=== PATIENT | female | born 1975 | race Caucasian/White ===

== ENCOUNTER 2023-02-07 13:24 | Emergency (ER) | payer OTHER ==
[~2023-02-07] VITALS: Ht 170.2 cm; Wt 109.6 kg
--- OUTSIDE RECORDS SUMMARY | 2023-02-07 13:26 | XMS ---
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 Connie VISIT COUNT (12 MO.) Merlin Dill TOTAL 1 NOTE: Visits indicate total known visits. ED/UCC VISIT TRACKING (12 MO.) 02/07/2023 13:25 [facility] [place] TYPE: Emergency COMPLAINT: - HEAVY VAGINAL BLEEDING INPATIENT VISIT TRACKING (12 MO.) No inpatient visits to display in this time frame [email or web address]
[2023-02-07] MEDS ORDERED: LEVETIRACETAM1000 MG PO (15:31)
[2023-02-07] MEDS ORDERED: IRON325 M1 PO (15:31)
[2023-02-07] MEDS ORDERED: GABAPENTIN300 MG PO (15:32)
[2023-02-07] MEDS ORDERED: TRANEXAMIC ACI650 MG PO (16:35)
== END 2023-02-07 16:59 | disposition home or self-care (01) ==
LOC: ED 13:24
DX: N93.8 Other specified abnormal uterine and vaginal bleeding (principal); D64.9 Anemia, unspecified; D25.9 Leiomyoma of uterus, unspecified; Z88.8 Allergy status to other drugs, medicaments and biological substances; Z88.0 Allergy status to penicillin; Z79.899 Other long term (current) drug therapy
CPT/HCPCS: 36415; 76830; 76856; 80048; 84703; 85025; 86900; 86901; 99284-25

== ENCOUNTER 2023-03-13 05:53 | Day surgery (SDC) | payer OTHER ==
[2023-03-06 11:01] VITALS: BP 124/83
[~2023-03-13] VITALS: Ht 170.2 cm; Wt 109.1 kg
[~2023-03-13 05:53] MED LIST: ATIVAN1 MG PO; BACTRIM DS TAB1 EACH PO; CALCIUM-FOLIC1 EACH PO; GABAPENTIN300 MG PO; ICAPS AREDS2 C1 EACH PO; IRON325 M1 PO; LEVETIRACETAM1000 MG PO; ONDANSETRON ODT8 MG PO; OXYCODONE HCL5 MG PO; TRANEXAMIC ACI650 MG PO; TYLENOL325 M1 PO; [UNRECOGNIZED DRUG - OTHER] PO
[2023-03-13 06:10] VITALS: BP 135/74
[2023-03-13 10:01] VITALS: BP 107/64
--- NOTE | 2023-03-14 08:55 | OR ---
[facility] [address] [place], [place] [address] Signed DATE OF OPERATION: 03/13/2023 SURGEON: Anna Goncalves DO PREOPERATIVE DIAGNOSES: 1. Abnormal uterine bleeding. 2. Submucosal fibroid. 3. Cervical cancer screening needed. POSTOPERATIVE DIAGNOSES: 1. Abnormal uterine bleeding. 2. Prolapsed fibroid or polyp through the cervix. 3. Submucosal fibroid (large). 4. Cervical cancer screening. 5. Brain cancer. PROCEDURES PERFORMED: 1. Cervical polypectomy. 2. Hysteroscopic myomectomy with dilation and curettage. 3. Pap smear under anesthesia. ANESTHESIA: MAC. ESTIMATED BLOOD LOSS: 25 mL. FLUID DEFICIT: 750 mL. SPECIMENS: 1. Prolapsed cervical fibroid/polyp. 2. Submucosal fibroid with endometrial curettings. 3. Pap smear. FINDINGS: Normal external genitalia with normal clitoris, urethral meatus, bilateral [place]'s and Bartholin's glands. Normal vagina. The cervix is dilated with a prolapsing cervical mass, likely polyp or fibroid. On hysteroscopy, large submucosal fibroid at 12 o'clock filling the entire uterine cavity. Endometrium otherwise normal but somewhat thickened. Electronically Signed By: ANNA GONCALVES DO (JD) 03/14/23 0855 PATIENT NAME: JUAN FRANCISCO BUSTILLO OPERATIVE REPORT DATE OF : 79 REPORT #: [id number] PHYSICIAN: ANNA GONCALVES DO (JD) PCP: KEYANNA JOHN PA-C REPORT IS CONFIDENTIAL AND NOT TO BE RELEASED WITHOUT AUTHORIZATION [facility] [address] [place], [place] [address] Signed Normal tubal ostia bilaterally. The fibroid was apparently removed in total. COMPLICATIONS: None. INDICATION: Ms. Bustillo is a very pleasant 47-year-old female with history of abnormal uterine bleeding that was stabilized in the emergency department with tranexamic acid. Ultrasound demonstrated large submucosal fibroid filling the endometrial cavity. Medical history is complicated by astrocytoma under the care of Dr. Villatoro. She was consented for Pap smear under anesthesia with hysteroscopy, D and C, and hysteroscopic myomectomy. Risks, benefits, and alternatives were discussed in detail with the patient. The patient understands and wished to proceed with the procedure. TECHNIQUE: The patient was taken to the operating room where a time-out was performed to confirm correct patient and correct procedure. MAC anesthesia was adequately established and the patient was prepped and draped in dorsal lithotomy position with her feet in Yellofin stirrups. ICPs were on and running and no preoperative antibiotics or heparin was indicated. Weighted speculum was placed in the vagina and Arriola retractor was used to retract the anterior vaginal wall. Dilated cervix with prolapsing cervical polyp or fibroid was noted. This was grasped with ring forceps and twisted until it came free. The cervix was then gently dilated using Hegar dilators. An operative hysteroscope was placed in the cervical os and advanced under direct visualization of the cavity. The stalk of the prolapsing polyp was noted to be somewhat low in the endocervical canal. The hysteroscope was advanced into the uterine cavity and a large central submucosal fibroid was noted at approximately 12 o'clock filling the entire uterine cavity. Bilateral tubal ostia were identified. A MyoSure Reach device was selected and hysteroscopic myomectomy was performed removing the entire fibroid and circumferential sampling of the endometrium was then performed. The intrauterine pressure was increased somewhat during the procedure in order to aid visualization. Fluid deficit was noted to be at 750. The hysteroscope was withdrawn. The remaining stalk of the endocervical polyp was removed with polyp forceps and Pap smear was performed and sent to pathology for further evaluation. Sponge, needle, and instrument count was correct x2 at the end of the procedure. The patient was then taken to PACU in good and stable condition. Anna Goncalves DO Electronically Signed By: ANNA GONCALVES DO (JD) 03/14/23 0855 PATIENT NAME: JUAN FRANCISCO BUSTILLO OPERATIVE REPORT DATE OF : [birth year] REPORT #: [id number] PHYSICIAN: ANNA GONCALVES DO (JD) PCP: KEYANNA JOHN PA-C REPORT IS CONFIDENTIAL AND NOT TO BE RELEASED WITHOUT AUTHORIZATION [facility] [address] [place] [id number] Signed ANA ROSA/ADI /[id number] Copies: ~ Electronically Signed By: ANNA GONCALVES (JD) DO 03/14/23 0855 PATIENT NAME: JUAN FRANCISCO BUSTILLO WHITNEY OPERATIVE REPORT DATE OF : [birth year] REPORT #: [id number] PHYSICIAN: ANNA GONCALVES) PCP: KEYANNA JOHN PA-C REPORT IS CONFIDENTIAL AND NOT TO BE RELEASED WITHOUT AUTHORIZATION
--- NOTE | 2023-03-16 11:55 | PATH ---
[facility] [address] [place], [place] [address] Signed SPECIMEN(S): A PROLAPSING UTERINE POLYP SPECIMEN(S): B UTERINE FIBROID AND EMC SPECIMEN SOURCE: A. PROLAPSING UTERINE POLYP B. UTERINE FIBROID AND EMC CLINICAL HISTORY: Abnormal uterine bleeding, anemia, fibroids. FINAL PATHOLOGIC DIAGNOSIS: A. Prolapsing uterine polyp: - Endocervical polyp with squamous metaplasia and mild squamous dysplasia (TAURUS 1), negative for high grade dysplasia or malignancy. B. Uterine fibroid and endometrial curettage: - Inactive and weakly proliferative endometrium with prominent stromal decidual change, negative for hyperplasia or atypia. - Abundant fragments of benign myometrium. JVR:[facility]:C2NR MICROSCOPIC EXAMINATION: Histologic sections of all submitted blocks are examined by light microscopy. These findings, together with the gross examination, support the pathologic diagnosis. A P16 immunostain is performed with appropriate controls on block (A1) and is negative for full-thickness staining in the area of concern, supporting the diagnosis. JVR:[facility] GROSS DESCRIPTION: A. The specimen, labeled and designated "Bustillo, prolapsing uterine polyp," is received in formalin and consists of white-aleman, firm, smooth tissue fragment that measures 2.4 x 1.4 x 0.9 cm. Specimen is inked. Sectioning through the specimen reveals pink-aleman homogenous tissue. Entirely submitted in (A1-A2). B. The specimen, labeled and designated "Bustillo, uterine fibroid and endometrial curettings," is received in formalin and consists of irregular shaped, pink-aleman, membranous and hemorrhagic tissue fragments that aggregate measure 2.8 x 2.5 x 0.5 cm. Entirely submitted in (B1-B3). JS (under the direct supervision of a pathologist) PATIENT NAME: JUAN FRANCISCO BUSTILLO PATHOLOGY DATE OF : [birth year] REPORT #: [id number] PHYSICIAN: VISHAL ORTEGA PCP: KEYANNA JOHN PA-C REPORT IS CONFIDENTIAL AND NOT TO BE RELEASED WITHOUT AUTHORIZATION [facility] [address] [place], [place] [address] Signed The Gross Description was prepared using a voice recognition system. The report was reviewed for accuracy; however, sound-alike word errors, addition and/or deletions may occur. If there is any question about this report, please contact Client Services. ADDITIONAL NOTES: Immunohistochemical and/or in situ hybridization studies were performed on this case with the appropriate positive controls that react as expected. This test was developed and its performance characteristics determined by light. It has not been cleared or approved by the U.S. Food and Drug Administration. The FDA has determined that such clearance or approval is not necessary. This test is used for clinical purposes. It should not be regarded as investigational or for research. light is certified under the Clinical Laboratory Improvement Amendments of 1988 (CLIA) as qualified to perform high complexity clinical laboratory testing. This assay has not been validated for specimens that have been decalcified. PERFORMING LABORATORY: The technical component was performed by [facility], [address] [place] [id number] (CLIA# [id number]). Professional interpretation was performed by [facility], [address] [place] [id number] (CLIA#: [id number]). Diagnostician: Timothy Medina MD Pathologist Electronically Signed 03/16/2023 Copies: ~ PATIENT NAME: JUAN FRANCISCO BUSTILLO PATHOLOGY DATE OF : [birth year] REPORT #: [id number] PHYSICIAN: VISHAL PATHOLOGY PCP: KEYANNA JOHN PA-C REPORT IS CONFIDENTIAL AND NOT TO BE RELEASED WITHOUT AUTHORIZATION
--- NOTE | 2023-03-16 12:50 | PATH ---
[facility] [address] [place], [place] [address] Signed ORDERING PHYSICIAN: Jalen Goncalves DO PATIENT NAME: JUAN FRANCISCO BUSTILLO GENDER: F : 1975 Prior History: No cases found. SPECIMEN(S): Cervical/ Endocervical CLINICAL HISTORY: Routine Pap Smear CYTOLOGIC INTERPRETATION: Negative for intraepithelial lesion or malignancy. TECHNICAL NOTES: To improve disease detection, this slide is screened using automated intelligence technology. This specimen was received in a vial of liquid-based fixative and was processed using thin layer Pap technology. SPECIMEN ADEQUACY: Satisfactory for evaluation. Endocervical and/or metaplastic cells present. An interfering substance is present. Blood or some other interfering foreign material is present that is obscuring the cells. This specimen has been reprocessed using alternate specimen preparation methods in an attempt to increase cellularity. ADDITIONAL NOTES: The Pap smear is a screening test designed to aid in the detection of premalignant and malignant conditions of the uterine cervix. It is not a diagnostic procedure and should not be used as the sole means of detecting cervical cancer. Both false-positive and false-negative reports do occur. PERFORMING LABORATORY: Technical preparation was performed by [facility], [address] [place], [place] [address] [address] (CLIA#: [id number]). 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
== END 2023-03-13 09:50 | disposition home or self-care (01) ==
LOC: DS 05:53
PROVIDERS: ATTEND Obstetrics & Gynecology
PROC: 0UDB8ZX Extraction of Endometrium, Via Natural or Artificial Opening Endoscopic, Diagnostic (ICD-10-PCS; principal; 2023-03-13 08:00)
DX: D25.0 Submucous leiomyoma of uterus (principal); D50.0 Iron deficiency anemia secondary to blood loss (chronic); Z88.0 Allergy status to penicillin; F17.210 Nicotine dependence, cigarettes, uncomplicated; C71.9 Malignant neoplasm of brain, unspecified; N84.1 Polyp of cervix uteri
CPT/HCPCS: 00952; 36415; 86850; 86900; 86901; 88305; 88342; J0131; J1885; J2001; J2704; J3490; J7121

== ENCOUNTER 2023-03-31 17:44 | Emergency (ER) | payer OTHER ==
[~2023-03-31] VITALS: Ht 170.2 cm; Wt 108.9 kg
--- OUTSIDE RECORDS SUMMARY | 2023-03-31 17:47 | XMS ---
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 Connie VISIT COUNT (12 MO.) Frandy Dill TOTAL 2 NOTE: Visits indicate total known visits. 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
[2023-03-31] MEDS ORDERED: CLEOCIN HCL300 MG PO (19:13)
[2023-03-31 19:25] VITALS: BP 141/72
== END 2023-03-31 19:26 | disposition home or self-care (01) ==
LOC: ED 17:44
DX: K04.7 Periapical abscess without sinus (principal); Z88.0 Allergy status to penicillin; Z88.8 Allergy status to other drugs, medicaments and biological substances
CPT/HCPCS: 64400; 99282-25; A9270

== ENCOUNTER 2024-10-08 05:25 | Day surgery (SDC) | payer MEDICARE, OTHER ==
[2024-07-24 14:17] VITALS: BP 125/79
[2024-09-17 11:25] VITALS: BP 125/79
[~2024-10-08] VITALS: Ht 170.2 cm; Wt 113.6 kg
[~2024-10-08 05:25] MED LIST changes: +ALEVE220 MG PO; +CALCIUM500 MG PO; +CEFAZOLIN SODIUM 2 GM/20 ML SYR IV SCH; +CLEOCIN HCL300 MG PO; +DICLOFENAC SODI75 MG PO; +GABAPENTIN 600 MG TAB PO SCH; +IBLOOD GLUCOSE TEST STRIP 1 EA TEST VI PRN; +INTRA-ARTICULAR ANALGESIC INJECTION XX SCH; +LACTATED RINGER'S 1,000 ML IV SCH; +LIDOCAINE HCL 1% 5 ML SDV INJ ONE; +MIRENA1 EAC3; +OXYCODONE HCL 5 MG TAB PO SCH; +PANTOPRAZOLE SODIUM 40 MG TABEC PO SCH; +PREDNISONE20 MG PO; +ROPIVACAINE IN 0.9% SOD CHL/PF 545 ML ELS.PMP.HR IRRIGATION SCH; +Ropivacaine HCl 20 MG/10 ML AMP ONE; +TRANEXAMIC ACID 2,000 MG in SODIUM CHLORIDE 0.9% 100 ML IV SCH; +VANCOMYCIN HCL 1,000 MG in DEXTROSE 5% 250 ML IV SCH; +VENTOLIN HFA18 GM INH; +VITAMIN B-12100 MCG PO; +VITAMIN D325 MCG PO; +levETIRAcetam 500 MG TAB PO SCH; +ondansetron HCL 4 MG TAB PO SCH
[2024-10-08 06:00] VITALS: BP 130/74
[2024-10-08] MEDS ORDERED: propofoL 200 MG/20 ML VIAL ONE ×3 (06:26→09:31)
[2024-10-08] MEDS ORDERED: DEXAMETHASONE SOD PHOS 4 MG/ML VIAL ONE (06:26)
[2024-10-08] MEDS ORDERED: SODIUM CHLORIDE 0.9% 40 ML IV ONE (06:26)
[2024-10-08] MEDS ORDERED: MIDAZOLAM HCL 2 MG/2 ML VIAL ONE (06:26)
[2024-10-08] MEDS ORDERED: dexmedeTOMIDine HCl 200 MCG/2 ML VIAL ONE (06:26)
[2024-10-08] MEDS ORDERED: LIDOCAINE HCL 2% 5 ML SDV ONE ×2 (06:26→08:40)
[2024-10-08] MEDS ORDERED: Ropivacaine HCl 0.5% 30 ML VIAL ONE (06:26)
[2024-10-08] MEDS ORDERED: Ropivacaine HCl 20 MG/10 ML AMP ONE (06:34)
[2024-10-08] MEDS ORDERED: PANTOPRAZOLE SODIUM 40 MG TABEC PO SCH (07:00)
[2024-10-08] MEDS ORDERED: TRANEXAMIC ACID 2,000 MG in SODIUM CHLORIDE 0.9% 100 ML IV SCH (07:00)
[2024-10-08] MEDS ORDERED: LIDOCAINE HCL 1% 5 ML SDV INJ ONE (07:00)
[2024-10-08] MEDS ORDERED: INTRA-ARTICULAR ANALGESIC INJECTION XX SCH (07:00)
[2024-10-08] MEDS ORDERED: OXYCODONE HCL 5 MG TAB PO SCH (07:00)
[2024-10-08] MEDS ORDERED: levETIRAcetam 500 MG TAB PO SCH (07:00)
[2024-10-08] MEDS ORDERED: IBLOOD GLUCOSE TEST STRIP 1 EA TEST VI PRN ×2 (07:00→09:45)
[2024-10-08] MEDS ORDERED: ondansetron HCL 4 MG TAB PO SCH (07:00)
[2024-10-08] MEDS ORDERED: VANCOMYCIN HCL 1,000 MG in DEXTROSE 5% 250 ML IV SCH (07:00)
[2024-10-08] MEDS ORDERED: ROPIVACAINE IN 0.9% SOD CHL/PF 545 ML ELS.PMP.HR IRRIGATION SCH (07:00)
[2024-10-08] MEDS ORDERED: fentaNYL citrate 100 MCG/2 ML VIAL ONE (08:40)
[2024-10-08] MEDS ORDERED: OXYCODONE HCL 5 MG TAB PO PRN (08:45)
[2024-10-08] MEDS ORDERED: KETOROLAC TROMETHAMINE 15 MG/ML VIAL IV PRN (08:45)
[2024-10-08] MEDS ORDERED: SENNOSIDES 1 TAB PO SCH (09:00)
[2024-10-08] MEDS ORDERED: GABAPENTIN 300 MG CAP PO SCH (09:00)
[2024-10-08] MEDS ORDERED: ACETAMINOPHEN 1,000 MG/100 ML VIAL ONE (09:28)
[2024-10-08] MEDS ORDERED: LACTATED RINGER'S 1,000 ML IV ONE (09:30)
[2024-10-08] MEDS ORDERED: KETOROLAC TROMETHAMINE 30 MG/ML VIAL ONE (09:30)
[2024-10-08] MEDS ORDERED: TRANEXAMIC ACID 1,000 MG/10 ML AMP ONE (09:34)
[2024-10-08] MEDS ORDERED: NALOXONE HCL 0.4 MG SYR IV PRN (09:45)
[2024-10-08] MEDS ORDERED: fentaNYL citrate 50 MCG/ML SDV IV PRN (09:45)
[2024-10-08] MEDS ORDERED: MIDAZOLAM HCL 2 MG/2 ML VIAL IV PRN (09:45)
[2024-10-08] MEDS ORDERED: ondansetron HCL 4 MG/2 ML VIAL IV PRN (09:45)
[2024-10-08] MEDS ORDERED: HYDROmorphone HCL 1 MG/ML SYR IV PRN (09:45)
[2024-10-08] MEDS ORDERED: GABAPENTIN300 MG PO (10:14)
[2024-10-08] MEDS ORDERED: OXYCODONE HCL5 MG PO (10:14)
[2024-10-08] MEDS ORDERED: CEFUROXIME500 MG PO (10:15)
[2024-10-08] MEDS ORDERED: SENNA LAX8.6 MG PO (10:15)
--- NOTE | 2024-10-08 10:19 | NUR ---
10/08/24 Teodoro9 Angela Hart 1009 PT TO PACU SLEEPING, SHE RESPONDS TO VERBAL STIMULI. 1012 SATS DROPPED TO 89% O2 ON TO 3L VIA NASAL CANNULA.
[2024-10-08 10:44] VITALS: BP 102/50
--- NOTE | 2024-10-08 10:48 | NUR ---
LE 1040: PT IS BACK TO DS FROM PACU. SHE RETURNS AT HER BASELINE. TOLERATING WATER AND JELLO. CALL LIGHT WITHIN REACH. NO ADDITIONAL NEEDS AT THIS TIME. DC CRITERIA REVIEWED WITH PT.
[2024-10-08 11:55] VITALS: BP 121/65
--- NOTE | 2024-10-08 12:04 | NUR ---
PT IS TOLERATING FOOD AND LIQUIDS. SHE IS RATING HER PAIN A 10/10 - GIVEN PAIN PILLS. SHE IS ADAMANT ABOUT GETTING OUT OF HERE NICOLETTE. SHE IS EDUCATED THAT SHE STILL NEEDS TO WORK WITH PHYSICAL THERAPY AND VOID. SHE VERBALIZES UNDERSTANDING. CALL LIGHT WITHIN REACH. NO ADDITIONAL NEEDS AT THIS TIME.
[2024-10-08] MEDS ORDERED: TRANEXAMIC ACID 2,000 MG in SODIUM CHLORIDE 0.9% 100 ML IV ONE (12:40)
--- NOTE | 2024-10-08 12:46 | NUR ---
PT VOIDED 500 ML DARK YELLOW, CLEAR URINE. PT UP WORKING WITH P/T.
--- NOTE | 2024-10-08 12:52 | NUR ---
LE 1220: PHYSICAL THERAPY IS HERE TO WORK WITH PT. LE 1235: PHYSICAL THERAPY AND SRT GET PT UP TO USE THE BATHROOM. LE 1245: PT LEAVES THE DEPARTMENT WITH PHYSICAL THERAPY AND BROTHER.
--- NOTE | 2024-10-08 12:55 | NUR ---
LE 1240: VS AND ASSESSMENT DEFERRED DUE TO PT WORKING WITH PHYSICAL THERAPY.
--- NOTE | 2024-10-08 13:05 | NUR ---
JENNIFER 1303: PT IS BACK FROM PHYSICAL THERAPY. SHE HAS PASSED AND DEEMED SAFE TO GO HOME.
--- NOTE | 2024-10-08 13:08 | NUR ---
LE 1209: DR. DILLARD CALLED AND ASKED ABOUT A 3RD DOSE OF TXA, IT WAS NOT ORDERED. HE GIVES VERBAL ORDER TO GO AHEAD AND GIVE A 3RD DOSE. LE 1307: DR. DILLARD NOTIFIED THAT PT HAS PASSED PHYSICAL THERAPY AND IS CURRENTLY GETTING HER LAST DOSE OF TXA. HE GIVES OK TO SEND HER HOME WHEN COMPLETED.
--- NOTE | 2024-10-08 13:51 | NUR ---
JENNIFER 1349: PT IS EDUCATED ON HOW TO BEST DRESS HERSELF AND TO TURN HER CALL LIGHT ON WHEN READY.
--- NOTE | 2024-10-08 15:20 | NUR ---
LE 1402: PT IS GIVEN WRITTEN AND VERBAL DC INSTRUCTIONS. SHE VERBALIZES UNDERSTANDING. NO QUESTIONS ARE ASKED AT THIS TIME. PT'S BROTHER IS HERE TO TAKE HER HOME. LE 1405: PT IS TAKEN TO PERSONAL VEHICLE VIA WC AND DC'D HOME.
[2024-10-08] MEDS ORDERED: CELECOXIB 200 MG CAP PO SCH (17:00)
--- NOTE | 2024-10-09 06:56 | OR ---
[facility] [address] [place], [place] [address] Signed DATE OF OPERATION: 10/08/2024 SURGEON: Debbie Hart MD PREOPERATIVE DIAGNOSIS: Severe degenerative joint disease, right knee. POSTOPERATIVE DIAGNOSIS: Severe degenerative joint disease, right knee. PROCEDURE PERFORMED: Right total knee arthroplasty with Everette. ELECTRIC MOTOR REPAIRMAN: Nadya Purcell MS4 ANESTHESIA: Spinal. BLOOD LOSS: 165 mL. TOURNIQUET TIME: Zero. IMPLANTS: Miller Triathlon size 4 femur, 3 tibia, 10 mm polyethylene and 32 mm patella. BRIEF HISTORY: Juan Francisco is a 49-year-old female with progressive worsening of arthritis and valgus deformity of her knee. Risks and benefits of operative treatment were discussed with her and she elected to proceed. DESCRIPTION OF PROCEDURE: Once consent was obtained, she was taken to the operating room. After adequate anesthesia, she was placed on the operating room table. A hip bump was placed on the right knee. The right leg was then prepped and draped in a standard sterile fashion. The knee was approached through a standard anterior midline incision. This was carried through skin and subcutaneous tissue. A low mid vastus arthrotomy was performed. The MCL was elevated as a sleeve around the posteromedial corner and the infrapatellar fat Electronically Signed By: DEBBIE HART MD 10/09/24 0656 PATIENT NAME: JUAN FRANCISCO BUSTILLO OPERATIVE REPORT DATE OF : [birth year] REPORT #: [id number] PHYSICIAN: DEBBIE HART MD PCP: KEYANNA JOHN PA-C REPORT IS CONFIDENTIAL AND NOT TO BE RELEASED WITHOUT AUTHORIZATION [facility] [address] [place], [place] [address] Signed pad was excised. The anterior horns of the menisci were transected as was the ACL. The PCL was found to be intact. The computer arrays for the navigation system were placed in the medial femoral condyle and proximal tibia. The leg was then registered with the computer, followed by the fine anatomic points of the knee. Ligamentous balance was then undertaken and the tibia was moved into more valgus. Once the ligaments were balanced, the robot was brought in. The four straight cuts and two angle cuts were made with care taken to protect the patellar tendon and MCL. The bony remnants were removed as were the osteophytes. Posterior osteophytes removed off the femur, but no release was performed. The trials were then positioned. The knee was taken from 0-130 degrees, which represented thigh-heel impingement. The knee was stable throughout. The patella tracked well. The patella was cut sized and drilled for a 32 mm patella. The distal femoral drill holes were completed and the proximal tibia was finished using the keel punch, followed by the drill guide. The implants were selected and the tibia was impacted until it was seated flush on tibia. The polyethylene was snapped into place and the femur was impacted until it was flushed. The knee was extended and loaded. The patella was clamped into position and again range of motion checked, showed good range of motion and stability. The patella tracked well with no tilting. The knee was copiously irrigated with one bottle of SurgiPhor, followed by normal saline. The periarticular soft tissue was injected with 100 mL of ropivacaine and Toradol mixture. The On-Q pain pump was percutaneously placed into the adductor canal from the suprapatellar pouch. The arthrotomy was then closed using a combination of the #2 FiberWire, #2 StrataFix. Subcutaneous tissue with 0-StrataFix and skin with allyssa. The wound was dressed with an Acticoat-7 dressing, ABDs, and Vikash wrap. She tolerated the procedure well. All sponge, needle, and instrument counts were correct. Debbie Hart MD BA/MODL /[id number] Copies: ~ Electronically Signed By: DEBBIE HART MD 10/09/24 0656 PATIENT NAME: JUAN FRANCISCO BUSTILLO OPERATIVE REPORT DATE OF : [birth year] REPORT #: [id number] PHYSICIAN: DEBBIE HART MD PCP: KEYANNA JOHN PA-C REPORT IS CONFIDENTIAL AND NOT TO BE RELEASED WITHOUT AUTHORIZATION
== END 2024-10-08 14:05 | disposition home or self-care (01) ==
LOC: DS 05:25
PROVIDERS: ATTEND Specialist
PROC: 0SRC0JZ Replacement of Right Knee Joint with Synthetic Substitute, Open Approach (ICD-10-PCS; principal; 2024-10-08 08:30)
DX: M17.11 Unilateral primary osteoarthritis, right knee (principal); Z88.1 Allergy status to other antibiotic agents; Z79.899 Other long term (current) drug therapy; Z87.891 Personal history of nicotine dependence
CPT/HCPCS: 01400; 36415; 64447; 64450; 64454; 73560; 76942; 84703; 97161; A9270; C1713; C1776; J0131; J1100; J1885; J2003; J2250; J2704; J2795; J3010; J3370; J7060; J7121; J7999

== ENCOUNTER 2024-10-19 21:21 | Emergency (ER) | payer MEDICARE, OTHER ==
[~2024-10-19] VITALS: Ht 170.2 cm; Wt 119.2 kg
[~2024-10-19 21:21] MED LIST changes: -CEFAZOLIN SODIUM 2 GM/20 ML SYR IV SCH; +CEFUROXIME500 MG PO; -GABAPENTIN 600 MG TAB PO SCH; -IBLOOD GLUCOSE TEST STRIP 1 EA TEST VI PRN; -INTRA-ARTICULAR ANALGESIC INJECTION XX SCH; -LACTATED RINGER'S 1,000 ML IV SCH; -LIDOCAINE HCL 1% 5 ML SDV INJ ONE; -OXYCODONE HCL 5 MG TAB PO SCH; -PANTOPRAZOLE SODIUM 40 MG TABEC PO SCH; -ROPIVACAINE IN 0.9% SOD CHL/PF 545 ML ELS.PMP.HR IRRIGATION SCH; -Ropivacaine HCl 20 MG/10 ML AMP ONE; +SENNA LAX8.6 MG PO; -TRANEXAMIC ACID 2,000 MG in SODIUM CHLORIDE 0.9% 100 ML IV SCH; -VANCOMYCIN HCL 1,000 MG in DEXTROSE 5% 250 ML IV SCH; -levETIRAcetam 500 MG TAB PO SCH; -ondansetron HCL 4 MG TAB PO SCH
[2024-10-19] MEDS ORDERED: HYDROmorphone HCL 1 MG/ML SYR IV PRN (21:30)
[2024-10-19 22:03] LABS: BASOPHILS 1.7 % (0-2); EOSINOPHILS 2.4 % (0-6); HEMATOCRIT 34.7 % (35.0-50.0); HEMOGLOBIN 11.5 g/dL (12.0-18.0); LYMPHOCYTES 34.4 % (24-44); MCH 29.6 (27-36); MCHC 33.1 g/dl (30-36); MCV 89.4 fl (81-99); MONOCYTES 7.4 % (0-12); NEUTROPHILS 54.1 % (39-80); PLATELET COUNT 370 K/uL (140-440); RBC 3.89 M/ul (4.3-5.7); RDW 13.5 (10.5-15.0)
[2024-10-19 22:16] LABS: ALBUMIN 3.1 g/dL (3.4-5.0); ALBUMIN/GLOBULIN RATIO 0.79 (1.1-2.4); ANION GAP 12.4 (7-21); BILIRUBIN, TOTAL 0.3 ng/dL (0.2-1.0); BUN/CREATININE RATIO 11.95 (6.0-28.6); CALCIUM 8.9 mg/dL (8.5-10.1); CREATININE, SERUM 0.92 mg/dL (0.55-1.02); POTASSIUM 4.4 mmol/L (3.5-5.1)
[2024-10-19] MEDS ORDERED: metOLazone 5 MG TAB PO ONE (22:30)
[2024-10-19] MEDS ORDERED: METOLAZONE5 MG PO (22:32)
[2024-10-19] MEDS ORDERED: OXYCODONE HCL5 MG PO (22:32)
[2024-10-19] MEDS ORDERED: OXYCODONE/ACETAMINOPHEN 1 TAB HOME.PACK PO ONE (22:45)
[2024-10-19 22:50] VITALS: BP 118/80
== END 2024-10-19 22:50 | disposition home or self-care (01) ==
LOC: ED 21:21
PROVIDERS: Family Medicine
DX: R60.0 Localized edema (principal); Z88.0 Allergy status to penicillin; Z88.8 Allergy status to other drugs, medicaments and biological substances; Z79.890 Hormone replacement therapy; Z79.899 Other long term (current) drug therapy
CPT/HCPCS: 36415; 80053; 83880; 85025; 96374; 99283-25; J1171

== ENCOUNTER 2025-01-05 05:30 | Day surgery (SDC) | payer MEDICARE, OTHER ==
[2024-12-23 15:35] VITALS: BP 135/89
[~2025-01-05 05:30] MED LIST changes: +LACTATED RINGER'S 1,000 ML IV SCH; +METOLAZONE5 MG PO
[2025-01-05 06:02] VITALS: BP 141/74
[2025-01-05] MEDS ORDERED: Ropivacaine HCl 20 MG/10 ML AMP ONE (06:03)
[2025-01-05] MEDS ORDERED: ADVIL100 M1 PO (06:05)
[2025-01-05] MEDS ORDERED: propofoL 200 MG/20 ML VIAL ONE ×2 (06:30→08:21)
[2025-01-05] MEDS ORDERED: SODIUM CHLORIDE 0.9% 20 ML IV ONE (06:30)
[2025-01-05] MEDS ORDERED: Ropivacaine HCl 0.5% 30 ML VIAL ONE (06:30)
[2025-01-05] MEDS ORDERED: DEXAMETHASONE SOD PHOS 4 MG/ML VIAL ONE (06:30)
[2025-01-05] MEDS ORDERED: LIDOCAINE HCL 2% 5 ML SDV ONE (06:30)
[2025-01-05] MEDS ORDERED: ondansetron HCL 4 MG/2 ML VIAL ONE (06:30)
[2025-01-05] MEDS ORDERED: MIDAZOLAM HCL 2 MG/2 ML VIAL ONE ×2 (06:30→07:30)
[2025-01-05] MEDS ORDERED: VANCOMYCIN HCL 1 GM VIAL ONE (06:36)
[2025-01-05] MEDS ORDERED: OXYCODONE HCL 5 MG TAB PO PRN (07:00)
[2025-01-05] MEDS ORDERED: ondansetron HCL 4 MG TAB PO SCH (07:00)
[2025-01-05] MEDS ORDERED: LIDOCAINE HCL 1% 5 ML SDV INJ ONE (07:00)
[2025-01-05] MEDS ORDERED: ondansetron HCL 4 MG TAB PO PRN (07:00)
[2025-01-05] MEDS ORDERED: PANTOPRAZOLE SODIUM 40 MG TABEC PO SCH (07:00)
[2025-01-05] MEDS ORDERED: INTRA-ARTICULAR ANALGESIC INJECTION XX SCH (07:00)
[2025-01-05] MEDS ORDERED: CEFAZOLIN SODIUM 2 GM/20 ML SYR IV SCH (07:00)
[2025-01-05] MEDS ORDERED: TRANEXAMIC ACID IN NACL,ISO-OS 1,000 MG/100 ML PIGGYBACK IV SCH ×3 (07:00→10:47)
[2025-01-05] MEDS ORDERED: KETOROLAC TROMETHAMINE 30 MG/ML VIAL IV PRN (07:00)
[2025-01-05] MEDS ORDERED: ROPIVACAINE IN 0.9% SOD CHL/PF 545 ML ELS.PMP.HR IRRIGATION SCH (07:00)
[2025-01-05] MEDS ORDERED: OXYCODONE HCL 5 MG TAB PO SCH (07:00)
[2025-01-05] MEDS ORDERED: VANCOMYCIN HCL 1 GM in DEXTROSE 5% 250 ML IV SCH (07:00)
[2025-01-05] MEDS ORDERED: IBLOOD GLUCOSE TEST STRIP 1 EA TEST VI PRN ×2 (07:00→09:30)
--- NOTE | 2025-01-05 07:39 | NUR ---
PT NOT AVAILABLE FOR VISIT. PROVIDED PRAYER.
--- NOTE | 2025-01-05 08:29 | NUR ---
DAY SURGERY RN ASKS ME TO START PATIENT'S IV WITH ULTRASOUND D/T PATIENT'S HISTORY OF DIFFICULT IV STARTS. 1ST ATTEMPT IS SUCCESSFUL FOR BLOOD DRAW; HOWEVER, I AM UNABLE TO THREAD CATHETER ENTIRELY. BLOOD IS DRAWN AND TUBED FOR LABS. IV IS DISCONTINUED WNL. THIS IS IN THE RIGHT UPPER FOREARM. 2ND ATTEMPT WITH 20 GAUGE, 1.75 INCH PIV IS SUCCESSFUL IN THE RIGHT UPPER ARM. PIV IS FLUSHED W/20 ML NS AND IS CONNECTED TO LR IV. PATIENT TOLERATES THIS WELL.
[2025-01-05] MEDS ORDERED: ACETAMINOPHEN 1,000 MG/100 ML VIAL ONE (08:44)
[2025-01-05] MEDS ORDERED: KETOROLAC TROMETHAMINE 30 MG/ML VIAL ONE (08:44)
[2025-01-05] MEDS ORDERED: SENNA LAX8.6 MG PO (09:05)
[2025-01-05] MEDS ORDERED: XARELTO10 MG PO (09:05)
[2025-01-05] MEDS ORDERED: CEFUROXIME250 MG PO (09:05)
[2025-01-05] MEDS ORDERED: DICLOFENAC SODI75 MG PO (09:06)
--- NOTE | 2025-01-05 09:12 | NUR ---
01/05/25 0912 Tyra Buitrago ON-Q PUMP @ 4. PATIENT IS UNAROUSABLE WITH ORAL AIRWAY IN PLACE.
[2025-01-05] MEDS ORDERED: HYDROmorphone HCL 1 MG/ML SYR IV PRN (09:30)
[2025-01-05] MEDS ORDERED: NALOXONE HCL 0.4 MG SYR IV PRN (09:30)
[2025-01-05] MEDS ORDERED: ondansetron HCL 4 MG/2 ML VIAL IV PRN (09:30)
[2025-01-05] MEDS ORDERED: PROCHLORPERAZINE EDISYLATE 10 MG/2 ML VIAL IV PRN (09:30)
[2025-01-05] MEDS ORDERED: fentaNYL citrate 50 MCG/ML SDV IV PRN (09:30)
[2025-01-05] MEDS ORDERED: droPERidol 5 MG/2 ML VIAL IV PRN (09:30)
--- NOTE | 2025-01-05 09:40 | NUR ---
Patient up to used the bedside commode. Hourly vitals and assessments delayed at this time.
--- NOTE | 2025-01-05 09:40 | NUR ---
Patient returns to room 7 from PACU. Report taken from ERIC Mary. Patient is awake and talking. Vital signs obtained. Patient's blood pressure slightly low, but patient does not have any symptoms. Dressing to left knee intact. Cryo-cuff and OnQ pump in place. Patient is unable to move or feel her legs. Spinal is still at L2. Water, jell-o, and pudding provided to patient. Patient is aware of expectations to go home. additional warm blankets provided to patient. She denies any other needs at this time. Bed in lowest position, call light within reach.
[2025-01-05 09:41] VITALS: BP 103/52
--- NOTE | 2025-01-05 11:00 | NUR ---
Hourly rounding on patient. Patient was able to urinate 800mL. Patient requests to get dressed and this is allowed, so patient is dressed in her own clothes now. vital signs obtained. her spinal has resolved at this time. She is reporting pain to her knee rating it an 8/10. I will give her pain medication. Her dressing is clean, dry, and intact. cryo- cuff in place. Warm blankets provided to patient. She denies any other needs at this time. Call light within reach.
[2025-01-05 11:27] VITALS: BP 123/71
[2025-01-05 11:59] VITALS: BP 125/58
--- NOTE | 2025-01-05 12:06 | NUR ---
Hourly rounding on patient. Vital signs obtained. Patient still rating her pain a 8/10. She continually states that she wants to walk. Patient allowed to sit on the edge of the bed and do leg extensions and she states that this is helping with her pain. Dressing is clean, dry, and intact. She denies any needs at this time. PT has been notified that patient is ready for assessment. Call light within reach.
--- NOTE | 2025-01-05 12:40 | NUR ---
Patient returns from PT evaluation and has passed. Call to Dr. Hart for verbal order for discharge. Verbal order received.
[2025-01-05 12:46] VITALS: BP 135/75
--- NOTE | 2025-01-05 12:49 | NUR ---
Vital signs obtained. patient medicated with gabapentin. She reports a pain 8/10 still. She would like to get something additional for her pain. I will speak with Augusta about re-blocking her before she goes home. Patient dressed and family here to take patient home
--- NOTE | 2025-01-05 12:56 | OR ---
[facility] [address] [place], [place] [address] Signed DATE OF OPERATION: 01/05/2025 SURGEON: Debbie Hart MD PREOPERATIVE DIAGNOSIS: Severe degenerative joint disease, left knee. POSTOPERATIVE DIAGNOSIS: Severe degenerative joint disease, left knee. PROCEDURE PERFORMED: Left total knee arthroplasty with Everette. COMPOSER TEACHING ARTIST: Marsha Ochoa PA-C. Marsha was present for all portions of the procedure. ANESTHESIA: Spinal. BLOOD LOSS: 200 mL. IMPLANTS: Miller Triathlon size 4 femur, 3 tibia, 10 mm polyethylene and a 32 mm patella. BRIEF HISTORY: Juan Francisco is a 49-year-old female with bilateral knee arthritis. She had undergone successful right total knee and wished to proceed with the left. Risks, benefits, and alternatives were discussed and she understood and wished to proceed. DESCRIPTION OF PROCEDURE: Once consent was obtained, she was taken to the operating room. After adequate anesthesia, she was placed on the operating room table with a hip bump. The leg was then prepped and draped in a standard sterile fashion. The knee was approached through standard anterior midline incision, carried through skin and subcutaneous tissue. Skin flaps were developed medially and laterally. A low mid vastus arthrotomy was performed, and the infrapatellar fat pad was excised. The MCL was elevated as a sleeve around the posteromedial corner. Anterior horns of the menisci were transected as was the ACL. The computer rays for the Everette navigation system were placed in the distal femur and proximal tibia. The leg was then registered with the computer, followed by the fine Electronically Signed By: DEBBIE AHRT MD 01/05/25 1256 PATIENT NAME: JUAN FRANCISCO BUSTILLO OPERATIVE REPORT DATE OF : 79 REPORT #: [id number] PHYSICIAN: DEBBIE HART MD PCP: KEYANNA JOHN PA-C REPORT IS CONFIDENTIAL AND NOT TO BE RELEASED WITHOUT AUTHORIZATION [facility] [address] [place], [place] [address] Signed anatomic points of the knee. Ligamentous testing was undertaken and slight changes were made to the positioning of the implant on the computer to balance the knee. Once this was completed, the robot was brought in. The four straight cuts and two angle cuts were made with care taken to protect the patellar tendon and MCL. The bony pieces were then removed as were any remaining osteophytes. Posterior osteophytes removed off the femur, but no release was performed. The trials were then positioned. The knee was taken from 0-130 with good stability throughout. The patella was noted to track well. The patella was cut sized and drilled for a 32 mm patella. The distal femoral drill holes were then completed using the drill. The proximal tibia was finished using the keel punch, followed by the drill. The bone was then in good condition and a non-cemented prosthesis was selected. The tibia was impacted in position first, followed by the polyethylene. The femur was impacted until was well-seated. The knee was then extended and loaded. The patella was clamped into position until it was seated flush. The patellar tracking was again checked and found to be good. The knee was then irrigated using one bottle of Surgiphor, followed by normal saline. Periarticular soft tissues were injected with 100 mL ropivacaine and Toradol mixture. The On-Q pain pump was percutaneously placed into the adductor canal from the suprapatellar pouch. The arthrotomy was then closed using a combination of #2 FiberWire and #2 StrataFix. Subcutaneous tissue was closed with 0-Stratafix and skin with allyssa. Wound was dressed with an Acticoat-7 dressing, ABD, and Vikash wrap. She tolerated the procedure well. All sponge, needle, and instrument counts correct. Debbie Hart MD BA/MODL /[id number] Copies: ~ Electronically Signed By: DEBBIE HART MD 01/05/25 1256 PATIENT NAME: JUAN FRANCISCO BUSTILLO OPERATIVE REPORT DATE OF : 79 REPORT #: [id number] PHYSICIAN: DEBBIE HART MD PCP: KEYANNA JOHN PA-C REPORT IS CONFIDENTIAL AND NOT TO BE RELEASED WITHOUT AUTHORIZATION
--- NOTE | 2025-01-05 13:00 | NUR ---
Spoke with ANNA Ray, regarding patient's pain. He spoke with patient and does not believe a block would be beneficial and no new orders for oral pain medication given as she was recently medicated with oxycodone and tylenol and ibuprofen in the OR. Patient is okay with this and would like to go home.
--- NOTE | 2025-01-05 13:10 | NUR ---
Discharge instructions were reviewed in detail with patient. She denies any questions. IV was removed from right upper arm. Gauze and coban applied to site. Patient discharged via wheelchair where her brother and sister are to take her home.
[2025-01-05] MEDS ORDERED: GABAPENTIN 300 MG CAP PO SCH (15:00)
[2025-01-05] MEDS ORDERED: SENNOSIDES 1 TAB PO SCH (21:00)
[2025-01-06] MEDS ORDERED: Rivaroxaban 10 MG TAB PO SCH (08:00)
[2025-01-06] MEDS ORDERED: cefuroxime axetiL 250 MG TAB PO SCH (09:00)
== END 2025-01-05 13:25 | disposition home or self-care (01) ==
LOC: DS 05:30
PROVIDERS: ATTEND Specialist
PROC: 0SRD0JZ Replacement of Left Knee Joint with Synthetic Substitute, Open Approach (ICD-10-PCS; principal; 2025-01-05 07:00)
DX: M17.12 Unilateral primary osteoarthritis, left knee (principal); Z87.891 Personal history of nicotine dependence; Z88.0 Allergy status to penicillin; Z89.422 Acquired absence of other left toe(s)
CPT/HCPCS: 01400; 36415; 64447; 64450; 64454; 73560; 76942; 84703; 97161; 97530; A9270; C1713; C1776; J0131; J1100; J1885; J2003; J2250; J2405; J2704; J2795; J3370; J7060; J7121; J7999

== ENCOUNTER 2025-05-29 22:00 | Emergency (ER) | payer MEDICARE, OTHER ==
[~2025-05-29] VITALS: Ht 170.2 cm; Wt 116.8 kg
[~2025-05-29 22:00] MED LIST changes: +ADVIL100 M1 PO; +CEFUROXIME250 MG PO; -LACTATED RINGER'S 1,000 ML IV SCH; +XARELTO10 MG PO
[2025-05-29] MEDS ORDERED: DIPHTH,PERTUSS(ACELL),TET VAC 0.5 ML SYRINGE IM ONE (22:30)
[2025-05-29] MEDS ORDERED: KETOROLAC TROMETHAMINE 30 MG/ML VIAL IV ONE (22:30)
[2025-05-29 22:39] LABS: BASOPHILS 0.6 % (0.1-1.2); EOSINOPHILS 0.1 % (0.7-5.8); LYMPHOCYTES 18.6 % (19.3-51.7); MCH 28.0 PG (25.6-32.2); MCHC 32.5 g/dL (32.2-35.5); MCV 86.1 fL (79.4-94.8); MONOCYTES 5.0 % (4.7-12.5); NEUTROPHILS 75.3 % (34.0-71.1); RBC 4.82 M/uL (3.93-5.22)
[2025-05-29 22:55] LABS: ALCOHOL, MEDICAL 29.0 ng/dL (<3); ALT (SGPT) 36.0 U/L (14-59); AST (SGOT) 38.0 U/L (15-37); GLOMERULAR FILTRATION RATE,EST 97.0 mL/min (>60); PROTEIN, TOTAL 7.7 g/dL (6.4-8.2); UREA NITROGEN 15.0 mg/dL (7-18)
[2025-05-29] MEDS ORDERED: HYDROCODONE/ACETA 5/325 TAB PO ONE (23:45)
[2025-05-30] MEDS ORDERED: TRAMADOL HCL50 MG PO (00:52)
[2025-05-30] MEDS ORDERED: TRAMADOL HCL 50 MG HOME.PACK PO ONE (01:00)
[2025-05-30 01:09] VITALS: BP 145/64
== END 2025-05-30 01:11 | disposition home or self-care (01) ==
LOC: ED 22:00
PROVIDERS: Family Medicine
DX: S16.1XXA Strain of muscle, fascia and tendon at neck level, initial encounter (principal); S00.12XA Contusion of left eyelid and periocular area, initial encounter; S90.122A Contusion of left lesser toe(s) without damage to nail, initial encounter; T71.9XXA Asphyxiation due to unspecified cause, initial encounter; Y04.8XXA Assault by other bodily force, initial encounter; Z79.899 Other long term (current) drug therapy; Z88.0 Allergy status to penicillin; Z88.8 Allergy status to other drugs, medicaments and biological substances
CPT/HCPCS: 36415; 70450; 70486; 72125; 73630; 80053; 83735; 84703; 85025; 90471; 90715; 96374; 99284-25; A9270; G0480; J1885